=== PATIENT | male | born 1985 | race African-American/Black ===

== ENCOUNTER 2023-06-05 10:45 | Emergency (ER) | payer OTHER | END 2023-06-05 14:20 | disposition home or self-care (01) | LOC: CSHERS 10:45 | DX: S13.9XXA Sprain of joints and ligaments of unspecified parts of neck, initial encounter (principal); S43.401A Unspecified sprain of right shoulder joint, initial encounter; S09.90XA Unspecified injury of head, initial encounter; V89.2XXA Person injured in unspecified motor-vehicle accident, traffic, initial encounter | CPT/HCPCS: 70450; 72125 ==